=== PATIENT | male | born 1975 | race Caucasian/White ===

== ENCOUNTER 2018-03-15 17:54 | Inpatient (IN) | payer OTHER ==
[2018-03-15] MEDS ORDERED: SODIUM CHLORIDE 0.9% 1,000 ML IV ONE ×2 (19:09→19:38)
--- NOTE | 2018-03-15 19:22 | XR ---
EXAMINATION TYPE: XR chest 2V DATE OF EXAM: 03/15/2018 COMPARISON: NONE HISTORY: Pain TECHNIQUE: Frontal and lateral views of the chest are obtained. FINDINGS: Heart and mediastinum are normal. There is some patchy infiltrate in the periphery of the left midlung. This is probably in the superior segment left lower lobe. The other lung marie are jovita ar. Bony thorax is intact. IMPRESSION: Left lower lobe pneumonia.
[2018-03-15 19:34] LABS: Albumin 3.7 g/dL (3.5-5.0); Calcium 8.7 mg/dL (8.4-10.2); Potassium 4.4 mmol/L (3.5-5.1); Total Bilirubin 0.6 mg/dL (0.2-1.3); Total Protein 6.6 g/dL (6.3-8.2)
[2018-03-15] MEDS ORDERED: AZITHROMYCIN 500 MG in SODIUM CHLORIDE 0.9% 250 ML IVPB STA (19:44)
[2018-03-15] MEDS ORDERED: VANCOMYCIN IV PER PHARMACY 1 EACH MISC MISCELLANE PRN (19:44)
[2018-03-15] MEDS ORDERED: CEFEPIME 2 GM in SODIUM CHLORIDE 0.9% 50 ML IVPB STA (19:46)
[2018-03-15] MEDS ORDERED: VANCOMYCIN 1,500 MG in SODIUM CHLORIDE 0.9% 250 ML IVPB STA (19:48)
[2018-03-15 19:50] LABS: Basophils % (A) 0 %; Eosinophils % (A) 0 %; HCT 38.5 % (39.0-53.0); HGB 12.8 gm/dL (13.0-17.5); Lymphocytes # (A) 1.6 k/uL (1.0-4.8); Lymphocytes % (A) 13 %; MCHC 33.3 g/dL (31.0-37.0); MCV 93.2 fL (80.0-100.0); Mean Platelet Volume 6.7; Monocytes # (A) 0.6 k/uL (0-1.0); Monocytes % (A) 5 %; Neutrophils # (A) 10.4 k/uL (1.3-7.7); Neutrophils % (A) 81 %; Platelet Count 176 k/uL (150-450); RBC 4.13 m/uL (4.30-5.90); RDW 13.8 % (11.5-15.5); WBC 12.8 k/uL (3.8-10.6)
[2018-03-15] MEDS ORDERED: LEVOFLOXACIN 750MG-D5W PMX 750 MG in DEXTROSE/WATER 1 150ML.BAG IVPB SCH (20:00)
[2018-03-15] MEDS ORDERED: NALOXONE 0.4 MG/ML 1 ML VIAL IV PRN (20:18)
[2018-03-15] MEDS ORDERED: OSELTAMIVIR 75 MG CAP PO STA (20:18)
--- NOTE | 2018-03-15 20:23 | ED ---
ENT HPI - General Chief complaint: ENT Stated complaint: HIV Positive, fever & vomiting Time Seen by Provider: 03/15/18 18:27 Source: patient Mode of arrival: ambulatory Limitations: no limitations - History of Present Illness Initial comments: This a 42-year-old male with past history of HIV who denies any other past medical history, denies full blown AIDS, he states he is unsure of his HIV status being type I or type II. Patient states he normally has good CD4 and T lymphocyte counts. Patient is unsure of his last count stating it was in July 2017. Patient states he does follow HIV specialist Dr. Kc who is in [facility]. Patient states he is anti-retroviral therapy. Patient states he has been at [facility] for rehab. He states he has had cough sore throat and a fever prior to [facility] for the past 3 days. Patient also noted some mild pain at the time and was concerned he was developing thrush. Patient presented today for evaluation for thrush. Patient does admit to an episode of vomiting, denies diarrhea or abdominal pain. Denies headache neck stiffness photophobia, hemoptysis, chest pain, dyspnea, dyspnea on exertion. Remainder review of systems negative, Patient denies any recent numbness or tingling, dysuria or hematuria, constipation, headaches or visual changes, or any other complaints. - Related Data Home Medications Medication Instructions Recorded Confirmed Acetaminophen [Tylenol Arthritis] 650 mg PO Q4H 03/15/18 03/15/18 Atomoxetine HCl [Strattera] 40 mg PO BID 03/15/18 03/15/18 Bictegrav/Emtricit/Tenofov Ala 1 tab PO DAILY 03/15/18 03/15/18 [Biktarvy 50-200-25 mg Tablet] Chlorpheniramine Maleate 4 mg PO Q4H 03/15/18 03/15/18 [Chlor-Trimeton] Geritussin 10 ml PO Q4H PRN 03/15/18 03/15/18 Ibuprofen [Motrin] 600 mg PO Q6HR PRN 03/15/18 03/15/18 Nicotine 21Mg/24Hr Patch [Habitrol] 21 mg TRANSDERM DAILY 03/15/18 03/15/18 Sertraline [Zoloft] 50 mg PO DAILY 03/15/18 03/15/18 busPIRone HCl [Buspar] 10 mg PO TID 03/15/18 03/15/18 traZODone HCL 600 mg PO HS 03/15/18 03/15/18 Allergies Allergy/AdvReac Type Severity Reaction Status Date / Time Penicillins Allergy Anaphylaxis Verified 03/15/18 19:36 Review of Systems ROS Statement: Those systems with pertinent positive or pertinent negative responses have been documented in the HPI. ROS Other: All systems not noted in ROS Statement are negative. Past Medical History Past Medical History: Asthma, COPD Additional Past Medical History / Comment(s): HIV, Neuropathy History of Any Multi-Drug Resistant Organisms: None Reported Additional Past Surgical History / Comment(s): Left leg plates and screws Past Psychological History: Depression Smoking Status: Current every day smoker Past Alcohol Use History: None Reported Past Drug Use History: Methamphetamine General Exam - General Exam Comments Initial Comments: General: The patient is awake and alert, in no distress. Eye: Pupils are equal, round and reactive to light, extra-ocular movements are intact. No nystagmus. There is normal conjunctiva bilaterally. No signs of icterus. Ears, nose, mouth and throat: There are moist mucous membranes and no oral lesions. Tongue exam does not reveal thick white plaque, there is no plaque on the oropharynx. Oropharynx mildly erythematous. No tonsillar enlargement states her lesions. Tympanic membranes within normal limits bilaterally Neck: The neck is supple, there is no tenderness or JVD. Cardiovascular: There is a regular rate and rhythm. No murmur, rub or gallop is appreciated. Respiratory: Lungs are clear to auscultation, respirations are non-labored, breath sounds are equal. No wheezes, stridor, rales, or rhonchi. Dry cough on exam. Gastrointestinal: Soft, non-distended, non-tender abdomen without masses or organomegaly noted. There is no rebound or guarding present. No CVA tenderness. Bowel sounds are unremarkable. Musculoskeletal: Normal ROM, no tenderness. Strength 5/5. Sensation intact. Radial pulses equal bilaterally 2+. Neurological: A&O x 3. CN II-XII intact, There are no obvious motor or sensory deficits. Coordination appears grossly intact. Speech is normal. Skin: Skin is warm and dry and no rashes or lesions are noted. Psychiatric: Cooperative, appropriate mood & affect, normal judgment. Limitations: no limitations Course Vital Signs 03/15/18 18:13 Temperature 97.9 F Pulse Rate 96 Respiratory 18 Rate Blood Pressure 88/59 O2 Sat by Pulse 96 Oximetry Medical Decision Making - Medical Decision Making 42-year-old male with history of HIV no respiratory distress. Influenza positive. Patient also has a consolidation of left lower lobe pneumonia. Patient afebrile upon arrival. Pt give 2L total of bolus IV fluid. She started on 3 regimen antibiotic. At this time I do feel patient with history of HIV to be admitted with Tamiflu, IV antibiotics and close monitoring. Patient will be placed on continuous pulse ox. Patient is agreeable with admission. [place] disease on consult. Attending provider greet impression and plan. Patient transferred to the floor in stable condition. - Lab Data Result diagrams: 03/15/18 19:03 03/15/18 19:03 Lab Results 03/15/18 03/15/18 03/15/18 Range/Units 18:56 19:03 19:03 WBC 12.8 H (3.8-10.6) k/uL RBC 4.13 L (4.30-5.90) m/uL Hgb 12.8 L (13.0-17.5) gm/dL Hct 38.5 L (39.0-53.0) % MCV 93.2 (80.0-100.0) fL MCH 31.0 (25.0-35.0) pg MCHC 33.3 (31.0-37.0) g/dL RDW 13.8 (11.5-15.5) % Plt Count 176 (150-450) k/uL Neutrophils % 81 % Lymphocytes % 13 % Monocytes % 5 % Eosinophils % 0 % Basophils % 0 % Neutrophils # 10.4 H (1.3-7.7) k/uL Lymphocytes # 1.6 (1.0-4.8) k/uL Monocytes # 0.6 (0-1.0) k/uL Eosinophils # 0.0 (0-0.7) k/uL Basophils # 0.0 (0-0.2) k/uL Sodium 138 (137-145) mmol/L Potassium 4.4 (3.5-5.1) mmol/L Chloride 103 (98-107) mmol/L Carbon Dioxide 25 (22-30) mmol/L Anion Gap 10 mmol/L BUN 15 (9-20) mg/dL Creatinine 1.20 (0.66-1.25) mg/dL Est GFR (CKD-EPI)AfAm 87 (>60 ml/min/1.73 sqM) Est GFR (CKD-EPI)NonAf 75 (>60 ml/min/1.73 sqM) Glucose 83 (74-99) mg/dL Plasma Lactic Acid Ilia (0.7-2.0) mmol/L Calcium 8.7 (8.4-10.2) mg/dL Total Bilirubin 0.6 (0.2-1.3) mg/dL AST 24 (17-59) U/L ALT 27 (21-72) U/L Alkaline Phosphatase 35 L (38-126) U/L Total Protein 6.6 (6.3-8.2) g/dL Albumin 3.7 (3.5-5.0) g/dL Influenza Type A RNA Detected H (Not Detectd) Influenza Type B (PCR) Not Detected (Not Detectd) 03/15/18 Range/Units 19:03 WBC (3.8-10.6) k/uL RBC (4.30-5.90) m/uL Hgb (13.0-17.5) gm/dL Hct (39.0-53.0) % MCV (80.0-100.0) fL MCH (25.0-35.0) pg MCHC (31.0-37.0) g/dL RDW (11.5-15.5) % Plt Count (150-450) k/uL Neutrophils % % Lymphocytes % % Monocytes % % Eosinophils % % Basophils % % Neutrophils # (1.3-7.7) k/uL Lymphocytes # (1.0-4.8) k/uL Monocytes # (0-1.0) k/uL Eosinophils # (0-0.7) k/uL Basophils # (0-0.2) k/uL Sodium (137-145) mmol/L Potassium (3.5-5.1) mmol/L Chloride (98-107) mmol/L Carbon Dioxide (22-30) mmol/L Anion Gap mmol/L BUN (9-20) mg/dL Creatinine (0.66-1.25) mg/dL Est GFR (CKD-EPI)AfAm (>60 ml/min/1.73 sqM) Est GFR (CKD-EPI)NonAf (>60 ml/min/1.73 sqM) Glucose (74-99) mg/dL Plasma Lactic Acid Ilia 1.2 (0.7-2.0) mmol/L Calcium (8.4-10.2) mg/dL Total Bilirubin (0.2-1.3) mg/dL AST (17-59) U/L ALT (21-72) U/L Alkaline Phosphatase (38-126) U/L Total Protein (6.3-8.2) g/dL Albumin (3.5-5.0) g/dL Influenza Type A RNA (Not Detectd) Influenza Type B (PCR) (Not Detectd) Disposition Clinical Impression: Influenza A, History of HIV infection, Pneumonia Disposition: ADMITTED IP TO THIS HOSP Condition: Stable Is patient prescribed a controlled substance at d/c from ED?: No Referrals: Nonstaff,Physician [Primary Care Provider] - 1-2 days Time of Disposition: 20:23 Decision to Admit Reason: Admit from EC Decision Date: 03/15/18 Decision Time: 20:23
[2018-03-15] MEDS ORDERED: IBUPROFEN 800 MG TAB PO PRN (22:25)
[2018-03-15] MEDS ORDERED: ACETAMINOPHEN TAB 325 MG TAB PO PRN (22:27)
--- NOTE | 2018-03-15 22:55 | P.HPIM ---
History of Present Illness H&P Date: 03/15/18 Chief Complaint: coughing , diffuse body aches 42-year-old male with history of HIV and polysubstance abuse [facility] Patient presented to the hospital with 3 day history of coughing and diffuse body aches. Today he was having fevers at the rehab center for which the nurse recommended that he goes to the hospital for evaluation patient reports many sick people around him all coughing. He reports nonproductive cough associated with sore throat and diffuse body aches. He also reports some runny nose and itchy eyes and feeling sick. He denies any wheezing or shortness of breath. He reports fevers today as high as 102 Fahrenheit. Reports poor appetite and malaise. Otherwise he denies any abdominal pain diarrhea or constipation denies any GI bleeding denies any urinary symptoms. Patient reports that he has history of HIV last follow-up was in July 2017 when he reports he had good CD4 number but he does not recall the value. He's been on antiretroviral therapy which was adjusted at that time. He is not on prophylactic antibiotics. Patient also reports that he lost his parents in July and became homeless. He currently stays at [facility]. In the ED he was found to have influenza A virus positive, chest x-ray suggested some left low lobe infiltrate. Patient was started on Tamiflu and levofloxacin for A coronary pneumonia Review of Systems Pertinent positives as noted in HPI. All other systems were reviewed and are negative Past Medical History Past Medical History: Asthma, COPD Additional Past Medical History / Comment(s): HIV, Neuropathy History of Any Multi-Drug Resistant Organisms: None Reported Additional Past Surgical History / Comment(s): Left leg plates and screws Past Psychological History: Depression Smoking Status: Current every day smoker Past Alcohol Use History: None Reported Past Drug Use History: Methamphetamine - Past Family History Mother Family Medical History: Myocardial Infarction ([place]) Father Family Medical History: Myocardial Infarction ([place]) Medications and Allergies Home Medications Medication Instructions Recorded Confirmed Type Acetaminophen [Tylenol Arthritis] 650 mg PO Q4H 03/15/18 03/15/18 History Atomoxetine HCl [Strattera] 40 mg PO BID 03/15/18 03/15/18 History Bictegrav/Emtricit/Tenofov Ala 1 tab PO DAILY 03/15/18 03/15/18 History [Biktarvy 50-200-25 mg Tablet] Chlorpheniramine Maleate 4 mg PO Q4H 03/15/18 03/15/18 History [Chlor-Trimeton] Geritussin 10 ml PO Q4H PRN 03/15/18 03/15/18 History Ibuprofen [Motrin] 600 mg PO Q6HR PRN 03/15/18 03/15/18 History Nicotine 21Mg/24Hr Patch [Habitrol] 21 mg TRANSDERM DAILY 03/15/18 03/15/18 History Sertraline [Zoloft] 50 mg PO DAILY 03/15/18 03/15/18 History busPIRone HCl [Buspar] 10 mg PO TID 03/15/18 03/15/18 History traZODone HCL 600 mg PO HS 03/15/18 03/15/18 History Allergies Allergy/AdvReac Type Severity Reaction Status Date / Time Penicillins Allergy Anaphylaxis Verified 03/15/18 19:36 Physical Exam Vitals: Vital Signs Temp Pulse Pulse Resp BP BP Pulse Ox 03/15/18 21:23 97.7 F 88 16 113/72 98 03/15/18 20:50 98 F 82 18 106/68 100 03/15/18 18:13 97.9 F 96 18 88/59 96 Intake and Output 03/15/18 03/15/18 03/15/18 06:59 14:59 22:59 Other: Weight 62.596 kg Constitutional: No acute distress, conversant, pleasant Eyes: Anicteric sclerae, moist conjunctiva, no lid-lag Pupils equal round reactive to light ENMT: NC/AT Oropharynx clear, no erythema, no exudates, no oral thrush Neck: Supple, FROM, no masses, or JVD No carotid bruits No thyromegaly Lungs: Good breath sounds bilaterally no wheezes rhonchi or rales Clear to percussion Normal respiratory effort, no accessory muscle use Cardiovascular: Heart regular in rate and rhythm, No murmurs, gallops, or rubs No peripheral edema Abdominal: Soft Nontender, no guarding, rebound or rigidity Abdomen moving with respiration Normoactive bowel sounds No hepatomegaly, No splenomegaly No palpable mass No abdominal wall hernia noted Skin: Normal temperature, tone, texture, turgor No induration No subcutaneous nodules No rash, lesions No ulcers Extremities: No digital cyanosis No clubbing Pedal pulses intact and symmetrical Radial pulses intact and symmetrical No calf tenderness Psychiatric: Alert and oriented to person, place and time Appropriate affect fair judgment Neuro Muscles Strength 5/5 in all 4 extremities Sensation to light touch grossly present throughout Cranial nerves II-XII grossly intact No focal sensory deficits Lymphatics: no palpable cervical or supraclavicular , or inguinal lymph nodes Results CBC & Chem 7: 03/15/18 19:03 03/15/18 19:03 Labs: Abnormal Lab Results - Last 24 Hours (Table) 03/15/18 03/15/18 03/15/18 Range/Units 18:56 19:03 19:03 WBC 12.8 H (3.8-10.6) k/uL RBC 4.13 L (4.30-5.90) m/uL Hgb 12.8 L (13.0-17.5) gm/dL Hct 38.5 L (39.0-53.0) % Neutrophils # 10.4 H (1.3-7.7) k/uL Alkaline Phosphatase 35 L (38-126) U/L Influenza Type A RNA Detected H (Not Detectd) Assessment and Plan Assessment: 42-year-old male with history of HIV admitted as an inpatient with anticipated length of stay more than 48 hours due to acute influenza A infection with possible underlying community-acquired pneumonia. patient currently is homeless, he came from [facility] due to meth abuse. Patient reports that his last follow-up with HIV clinic was 6 months ago at that time he had good CD4 count per his report Plan: Acute influenza A virus infection Community-acquired pneumonia Blood cultures check Started on levofloxacin, Tamiflu IV fluid hydration Symptomatic control with ibuprofen, Lozenges, cough syrup HIV Currently on antiretroviral therapy Not on any prophylaxis medications Most recent CD4 was 6 months ago patient doesn't recall the exact number Check CD4 count and t lymphocytes History of asthma/COPD DuoNeb's when necessary Tobacco smoking Nicotine replacement therapy offered Patient counseled to quit smoking DVT prophylaxis heparin subcu 3 times a day Surrogate decision-maker: Patient couldn't name any 1 CODE STATUS:*Full code Discussed with: Patient, ER, *RN Anticipated discharge: 48-[address]: Patient will require placement custodial or rehab, patient currently homeless A total of 55 minutes was spent on the care of this complex patient more than 50 % of the time was spent in counseling and care coordination.
[2018-03-15] MEDS: busPIRone HCl 10 MG TAB PO SCH (23:51)
[2018-03-15] MEDS: HEPARIN SODIUM,PORCINE 5,000 UNIT/ML 1 ML VIAL SQ SCH (23:51)
[2018-03-15] MEDS: guaiFENesin-DM 100-10MG/5ML 10 ML CUP PO PRN (23:51)
[2018-03-15] MEDS: NICOTINE 21MG/24HR PATCH TRANSDERM SCH (23:52)
[2018-03-15] MEDS: traZODone HCL 100 MG TAB PO SCH (23:52)
[2018-03-15] MEDS: SODIUM CHLORIDE 0.9% 1,000 ML IV SCH (23:52)
[2018-03-16] MEDS ORDERED: AZTREONAM 2 GM in SODIUM CHLORIDE 0.9% 100 ML IVPB SCH ×2
[2018-03-16] MEDS: BENZOCAINE/MENTHOL LOZENG 1 EACH LOZENGE MUCOUS MEM PRN ×2 (02:35→22:29)
[2018-03-16 07:56] LABS: Anion Gap 4 mmol/L; Blood Urea Nitrogen 10 mg/dL (9-20); Calcium 8.4 mg/dL (8.4-10.2); Carbon Dioxide 25 mmol/L (22-30); Chloride 113 mmol/L (98-107); Glucose 93 mg/dL (74-99); Potassium 4.1 mmol/L (3.5-5.1); Sodium 142 mmol/L (137-145)
[2018-03-16] MEDS ORDERED: VANCOMYCIN 1,250 MG in SODIUM CHLORIDE 0.9% 250 ML IVPB SCH (08:00)
--- NOTE | 2018-03-16 08:45 | P.CONS ---
History of Present Illness - Reason for Consult Consult date: 03/16/18 - Chief Complaint Fever - History of Present Illness 42-year-old male with a long-standing history of HIV infection is being housed at the [facility] for his current polysubstance abuse. He apparently is getting to the end of his stay at the facility. He relates that many of the residents are ill with respiratory infection with cough and fevers. The patient relates that within a couple of days of [facility]mad[facility] emergency center he was not feeling well. He was having some low-grade fevers cough and chills. On the day was transferred to the emergency center he was feeling quite poorly with fever, cough some minimal sputum production and chills. He relates that he also was having a bit of difficulty eating and was losing some weight. This worries him because when he first was diagnosed with HIV he had bowel infection and had profuse diarrhea and lost quite a bit of weight back then. He relates was routinely on Biktarvy and doing well with this therapy. Review of Systems Feels slightly better. Fever and chills are improving. Still has cough and mild shortness of breath. HEENT:Denies headache or acute visual change. Denies sinus or mouth discomforts. Denies neck stiffness or pain. No difficulty swallowing but mouth is uncomfortable. Lungs : His some minimal wheezing does have cough some sputum production but no significant discomfort in his chest Cardiovascular: Denies significant shortness of breath, chest pain, chest wall pain, orthopnea, dyspnea on exertion, syncope Gastrointestinal:Denies nausea, vomiting, diarrhea, constipation, hematemesis, melena, hematochezia. No no significant change of bowel habit noticed. Musculoskeletal: denies significant myalgias or arthralgias. No new joint swelling. Denies new back pain. Skin: Denies new rash or lesions. No new ulcers or wounds are related.. Neuro: Denies headache or visual change. Denies any new onset weakness or difficulty with ambulation. Denies falls or seizures. Psychiatric:Denies anxiety or depression. Endocrine with the illness has become fatigued ,weight has been somewhat stable while he has been at [facility] Past Medical History Past Medical History: Asthma, COPD Additional Past Medical History / Comment(s): HIV, Neuropathy History of Any Multi-Drug Resistant Organisms: None Reported Additional Past Surgical History / Comment(s): Left leg plates and screws Past Psychological History: Depression Additional Psychological History / Comment(s): Chronic tobacco use. Chronic marijuana use. Polysubstance abuse at the time of his admission to [facility]. Identifies as antuenz. Somewhat recently broke up with Partner of 11 years. His parents this past summer within 4 weeks of each other. He relates that these 3 events resulted in him being homeless and worsened his polysubstance abuse. No experience. 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 [place] Smoking Status: Current every day smoker Past Alcohol Use History: None Reported Past Drug Use History: Methamphetamine - Past Family History Mother Family Medical History: Myocardial Infarction ([place]) Father Family Medical History: Myocardial Infarction ([place]) Medications and Allergies Home Medications and Allergies Comment(s): Current Medications Acetaminophen (Tylenol Tab) 650 mg PO Q4H PRN PRN Reason: Fever Albuterol/Ipratropium (Duoneb 0.5 Mg-3 Mg/3 Ml Soln) 3 ml INHALATION RT-QID PRN PRN Reason: Shortness Of Breath Or Wheezing Benzocaine/Menthol (Cepacol Lozenge) 1 each MUCOUS MEM Q4HR PRN PRN Reason: Sore Throat Last Admin: 03/16/18 02:35 Dose: 1 each Buspirone HCl (Buspar) 10 mg PO TID [facility] Last Admin: 03/15/18 23:51 Dose: 10 mg Guaifenesin/Dextromethorphan (Robitussin Dm) 10 ml PO Q6H PRN PRN Reason: Cough Last Admin: 03/15/18 23:51 Dose: 10 ml Heparin Sodium (Porcine) (Heparin) 5,000 unit SQ Q8HR [facility] Last Admin: 03/15/18 23:51 Dose: 5,000 unit Levofloxacin 750 mg/ IV (Solution) 150 mls @ 100 mls/hr IVPB Q24H [facility] Last Admin: 03/15/18 23:51 Dose: 100 mls/hr Sodium Chloride (Saline 0.9%) 1,000 mls @ 100 mls/hr IV .Q10H [facility] Last Admin: 03/15/18 23:52 Dose: 100 mls/hr Ibuprofen (Motrin) 800 mg PO TID PRN PRN Reason: Pain Naloxone HCl (Narcan) 0.2 mg IV Q2M PRN PRN Reason: Opioid Reversal Nicotine (Habitrol 21mg/24hr Patch) 1 patch TRANSDERM DAILY [facility] Last Admin: 03/15/18 23:52 Dose: 1 patch Non-Formulary Medication (Atomoxetine Hcl [Strattera]) 40 mg PO BID [facility] Non-Formulary Medication (Bictegrav/Emtricit/Tenofov Ala [Biktarvy 50-200-25 Mg Tablet]) 1 tab PO DAILY [facility] Oseltamivir Phosphate (Tamiflu) 75 mg PO Q12HR [facility] Stop: 03/20/18 21:01 Sertraline HCl (Zoloft) 50 mg PO DAILY [facility] Trazodone HCl (Desyrel) 300 mg PO [facility] Last Admin: 03/15/18 23:52 Dose: 300 mg Home Medications Medication Instructions Recorded Confirmed Type Acetaminophen [Tylenol Arthritis] 650 mg PO Q4H 03/15/18 03/15/18 History Atomoxetine HCl [Strattera] 40 mg PO BID 03/15/18 03/15/18 History Bictegrav/Emtricit/Tenofov Ala 1 tab PO DAILY 03/15/18 03/15/18 History [Biktarvy 50-200-25 mg Tablet] Chlorpheniramine Maleate 4 mg PO Q4H 03/15/18 03/15/18 History [Chlor-Trimeton] Geritussin 10 ml PO Q4H PRN 03/15/18 03/15/18 History Ibuprofen [Motrin] 600 mg PO Q6HR PRN 03/15/18 03/15/18 History Nicotine 21Mg/24Hr Patch [Habitrol] 21 mg TRANSDERM DAILY 03/15/18 03/15/18 History Sertraline [Zoloft] 50 mg PO DAILY 03/15/18 03/15/18 History busPIRone HCl [Buspar] 10 mg PO TID 03/15/18 03/15/18 History traZODone HCL 600 mg PO HS 03/15/18 03/15/18 History Allergies Allergy/AdvReac Type Severity Reaction Status Date / Time Penicillins Allergy Anaphylaxis Verified 03/15/18 19:36 Physical Exam Vitals: Vital Signs Temp Pulse Pulse Resp BP BP Pulse Ox 03/16/18 00:36 98.2 F 91 15 124/60 97 03/15/18 22:00 91 15 03/15/18 21:23 97.7 F 88 16 113/72 98 03/15/18 20:50 98 F 82 18 106/68 100 03/15/18 18:13 97.9 F 96 18 88/59 96 Intake and Output 03/15/18 03/16/18 03/16/18 22:59 06:59 14:59 Intake Total 2500 1400 Balance 2500 1400 Intake: Intake, IV Titration 2200 1050 Amount Levofloxacin 750Mg-D5w 150 Pmx 750 mg In Dextrose/ Water 1 150ml.bag @ 100 mls/hr IVPB Q24H [facility] Rx#: [id number] Sodium Chloride 0.9% 1, 900 000 ml @ 100 mls/hr IV . Q10H [facility] Rx#:[id number] Sodium Chloride 0.9% 1, 1000 000 ml @ 999 mls/hr IV . Q1H1M [facility] Rx#:[id number] Sodium Chloride 0.9% 1, 1000 000 ml @ 999 mls/hr IV . Q1H1M [facility] Rx#:[id number] Vancomycin 1,250 mg In 200 Sodium Chloride 0.9% 250 ml @ 125 mls/hr IVPB Q12H [facility] Rx#:[id number] Oral 300 350 Other: Voiding Method Toilet # Voids 3 2 Weight 62.596 kg 6-year-old male of thin build in no distress HEENT: Anicteric conjunctiva are pink and moist nasal mucosa grossly intact without significant lesions, there is mild thrush Neck: The neck is supple without significant lymphadenopathy or thyromegaly. Lungs: Good bilateral air entry with evidence of some expiratory wheeze. There are bronchial sounds at the left baseand dullness but no egophony is noted Heart: Regular rate and rhythm with an audible S1-S2, no S3 no S4. There is no significant murmur click or rub, PMI was nondisplaced. Abdomen: Positive bowel sounds soft and nontender without palpable masses or organomegaly. There was no guarding or rebound. Extremities: The upper extremities have excellent pulses they are symmetric, no significant petechiae or telangiectasia. No splinter hemorrhages were noted. There is evidence of a healing paronychia of the left thumb no expressible purulence. The lower extremities are free from significant edema. The peripheral pulses were 2+ and symmetric. Neuro: Awake alert oriented to person place and time. There are no acute new gross focal sensory motor deficits. Results CBC & Chem 7: 03/15/18 19:03 03/16/18 06:39 Labs: Abnormal Lab Results - Last 24 Hours (Table) 03/15/18 03/15/18 03/15/18 Range/Units 18:56 19:03 19:03 WBC 12.8 H (3.8-10.6) k/uL RBC 4.13 L (4.30-5.90) m/uL Hgb 12.8 L (13.0-17.5) gm/dL Hct 38.5 L (39.0-53.0) % Neutrophils # 10.4 H (1.3-7.7) k/uL Chloride (98-107) mmol/L Alkaline Phosphatase 35 L (38-126) U/L Influenza Type A RNA Detected H (Not Detectd) 03/16/18 Range/Units 06:39 WBC (3.8-10.6) k/uL RBC (4.30-5.90) m/uL Hgb (13.0-17.5) gm/dL Hct (39.0-53.0) % Neutrophils # (1.3-7.7) k/uL Chloride 113 H (98-107) mmol/L Alkaline Phosphatase (38-126) U/L Influenza Type A RNA (Not Detectd) Laboratory Results WBC 12.8 k/uL (3.8-10.6) H 03/15/18 19:03 RBC 4.13 m/uL (4.30-5.90) L 03/15/18 19:03 Hgb 12.8 gm/dL (13.0-17.5) L 03/15/18 19:03 Hct 38.5 % (39.0-53.0) L 03/15/18 19: MCV 93.2 fL (80.0-100.0) 03/15/18 19:03 MCH 31.0 pg (25.0-35.0) 03/15/18 19: MCHC 33.3 g/dL (31.0-37.0) 03/15/18 19: RDW 13.8 % (11.5-15.5) 03/15/18 19:03 Plt Count 176 k/uL (150-450) 03/15/18 19:03 Neutrophils % 81 % 03/15/18 19:03 Lymphocytes % 13 % 03/15/18 19:03 Monocytes % 5 % 03/15/18 19:03 Eosinophils % 0 % 03/15/18 19:03 Basophils % 0 % 03/15/18 19:03 Neutrophils # 10.4 k/uL (1.3-7.7) H 03/15/18 19:03 Lymphocytes # 1.6 k/uL (1.0-4.8) 03/15/18 19:03 Monocytes # 0.6 k/uL (0-1.0) 03/15/18 19:03 Eosinophils # 0.0 k/uL (0-0.7) 03/15/18 19:03 Basophils # 0.0 k/uL (0-0.2) 03/15/18 19:03 Sodium 142 mmol/L (137-145) 03/16/18 06:39 Potassium 4.1 mmol/L (3.5-5.1) 03/16/18 06:39 Chloride 113 mmol/L (98-107) H 03/16/18 06:39 Carbon Dioxide 25 mmol/L (22-30) 03/16/18 06:39 Anion Gap 4 mmol/L 03/16/18 06:39 BUN 10 mg/dL (9-20) 03/16/18 06:39 Creatinine 0.89 mg/dL (0.66-1.25) 03/16/18 06:39 Est GFR (CKD-EPI)AfAm >90 (>60 ml/min/1.73 sqM) 03/16/18 06:39 Est GFR (CKD-EPI)NonAf >90 (>60 ml/min/1.73 sqM) 03/16/18 06:39 Glucose 93 mg/dL (74-99) 03/16/18 06:39 Plasma Lactic Acid Ilia 1.2 mmol/L (0.7-2.0) 03/15/18 19:03 Calcium 8.4 mg/dL (8.4-10.2) 03/16/18 06:39 Total Bilirubin 0.6 mg/dL (0.2-1.3) 03/15/18 19:03 AST 24 U/L (17-59) 03/15/18 19:03 ALT 27 U/L (21-72) 03/15/18 19:03 Alkaline Phosphatase 35 U/L (38-126) L 03/15/18 19:03 Total Protein 6.6 g/dL (6.3-8.2) 03/15/18 19:03 Albumin 3.7 g/dL (3.5-5.0) 03/15/18 19:03 Influenza Type A RNA Detected (Not Detectd) H 03/15/18 18:56 Influenza Type B (PCR) Not Detected (Not Detectd) 03/15/18 18:56 Assessment and Plan (1) Influenza A Narrative/Plan: 42-year-old male with a approximate 10 year history of HIV infection relates that he has been well controlled under the care of Dr. Kc in the [place] area. Biktarvy is his current antiretroviral therapy and has been tolerating this well he relates his CD4 count has been adequate considerably over 200. He is in no prophylaxis of any type at this point in time. Since he' s become ill with influenza he's had fever cough and sensory production. Chest x-ray is reviewed and shows evidence of the left lower lobe infiltrate also. Treatment with standard course of Tamiflu Levofloxacin being utilized for treatment of the pneumonia, he does not appear to be a classic viral pneumonia and constantly antibiotic therapy is appropriate in addition to the antiviral therapy given his immunocompromised status, would plan 7 days given his immunocompromised status. We have asked the geriatric social work professor to contact [facility] so that his [facility] is available while he is here at Hospital and then after his discharge. If the patient does set up residence in [facility] he could follow in the office. Current Visit: Yes Status: Acute Code(s): J10.1 - FLU DUE TO OTH IDENT INFLUENZA VIRUS W OTH RESP MANIFEST SNOMED Code(s): 319213253 (2) Human immunodeficiency virus (HIV) disease Current Visit: Yes Status: Acute Code(s): B20 - HUMAN IMMUNODEFICIENCY VIRUS [HIV] DISEASE SNOMED Code(s): 78555429
[2018-03-16] MEDS: NICOTINE 21MG/24HR PATCH TRANSDERM SCH (09:12)
[2018-03-16] MEDS: HEPARIN SODIUM,PORCINE 5,000 UNIT/ML 1 ML VIAL SQ SCH ×2 (09:12→17:53)
[2018-03-16] MEDS: SERTRALINE 50 MG TAB PO SCH (09:12)
[2018-03-16] MEDS: OSELTAMIVIR 75 MG CAP PO SCH ×2 (09:12→22:30)
[2018-03-16] MEDS: busPIRone HCl 10 MG TAB PO SCH ×3 (09:31→22:30)
[2018-03-16] MEDS: SODIUM CHLORIDE 0.9% 1,000 ML IV SCH ×2 (09:31→22:33)
[2018-03-16] MEDS: IPRATROPIUM-ALBUTEROL 3 ML NEB INHALATION PRN (11:56)
--- NOTE | 2018-03-16 12:44 | P.PN ---
Subjective Progress Note Date: 03/16/18 Principal diagnosis: influenza, pneumonia Patient was seen and examined. No acute events overnight. Patient complains of chest pain, only when he coughs. Pain is 7 out of 10 in severity. His pain prevents him from taking deep inhalations. Patient reports myalgias as well. He denies any changes in urination or bowel habits. No fever or chills. Objective - Vital Signs Vital signs: Vital Signs Temp 98.3 F 03/16/18 09:06 Pulse 80 03/16/18 12:04 Resp 16 03/16/18 09:06 BP 94/57 03/16/18 09:08 Pulse Ox 92 L 03/16/18 09:08 Intake & Output 03/15/18 03/16/18 03/16/18 18:59 06:59 18:59 Intake Total 3900 Balance 3900 Weight 62.596 kg Intake: Intake, IV Titration 3250 Amount Levofloxacin 750Mg-D5w 150 Pmx 750 mg In Dextrose/ Water 1 150ml.bag @ 100 mls/hr IVPB Q24H [facility] Rx#: [id number] Sodium Chloride 0.9% 1, 900 000 ml @ 100 mls/hr IV . Q10H [facility] Rx#:[id number] Sodium Chloride 0.9% 1, 1000 000 ml @ 999 mls/hr IV . Q1H1M [facility] Rx#:[id number] Sodium Chloride 0.9% 1, 1000 000 ml @ 999 mls/hr IV . Q1H1M [facility] Rx#:[id number] Vancomycin 1,250 mg In 200 Sodium Chloride 0.9% 250 ml @ 125 mls/hr IVPB Q12H [facility] Rx#:[id number] Oral 650 Other: Voiding Method Toilet Toilet # Voids 2 - Exam General: [non toxic], [no distress], [appears at stated age] Derm: [warm], [dry] Head: [atraumatic], [normocephalic], [symmetric] Eyes: [EOMI], [no lid lag], [anicteric sclera] Mouth: [no lip lesion], [mucus membranes moist] Cardiovascular: [S1S2 reg], [tachycardia], [positive posterior tibial pulse bilateral], Lungs: [clear to auscultation bilaterally with poor inspiratory effort], [no rhonchi, no rales] , [no accessory muscle use] Abdominal: [soft], [ nontender to palpation], [no guarding], [no appreciable organomegaly] Ext: [no gross muscle atrophy], [no edema], [no contractures] Neuro: [no focal neuro deficits] Psych: [Alert], [oriented], [appropriate affect] - Labs CBC & Chem 7: 03/15/18 19:03 03/16/18 06:39 Labs: Abnormal Lab Results - Last 24 Hours (Table) 03/15/18 03/15/18 03/15/18 Range/Units 18:56 19:03 19:03 WBC 12.8 H (3.8-10.6) k/uL RBC 4.13 L (4.30-5.90) m/uL Hgb 12.8 L (13.0-17.5) gm/dL Hct 38.5 L (39.0-53.0) % Neutrophils # 10.4 H (1.3-7.7) k/uL Chloride (98-107) mmol/L Alkaline Phosphatase 35 L (38-126) U/L Influenza Type A RNA Detected H (Not Detectd) 03/16/18 Range/Units 06:39 WBC (3.8-10.6) k/uL RBC (4.30-5.90) m/uL Hgb (13.0-17.5) gm/dL Hct (39.0-53.0) % Neutrophils # (1.3-7.7) k/uL Chloride 113 H (98-107) mmol/L Alkaline Phosphatase (38-126) U/L Influenza Type A RNA (Not Detectd) Assessment and Plan Assessment: Assessment and Plan 1. Influenza infection 2. Pneumonia 3. HIV 4. Asthma/COPD 5. Smoker 1. Influenza swab positive. Tylenol as needed for fever. Robitussin-DM for cough. Cefaclor lozenges for sore throat. Pain management with ibuprofen or Tylenol, will add Torodol IV as needed for breakthrough. Continue Tamiflu 75 mg by mouth twice a day. We'll follow ID recommendations. 2. As seen on chest x-ray.started on levofloxacin IV for community-acquired pneumonia. Tylenol as needed for fever. Robitussin-DM for cough. Oxygen per nasal cannula to maintain an oxygen saturation greater than 92%. Will follow blood cultures. 3. Resume home medications. We'll follow ID recommendations. 4. DuoNeb as needed4 times a day as needed for shortness of breath or wheezing. 5. Nicotine patch. Patient being treated for influenza infection with superimposed pneumonia. He is pending clinical improvement.
[2018-03-16] MEDS: KETOROLAC 30 MG/ML 1 ML VIAL IVP SCH ×2 (15:14→18:00)
[2018-03-16] MEDS: STRATTERA 40 MG PO SCH ×2 (17:50→22:45)
[2018-03-16] MEDS: MORPHINE SULFATE 2 MG/ML SYRINGE IVP PRN (17:54)
[2018-03-16] MEDS: [UNRECOGNIZED DRUG - OTHER] PO SCH (19:23)
[2018-03-16] MEDS: guaiFENesin-DM 100-10MG/5ML 10 ML CUP PO PRN (22:29)
[2018-03-16] MEDS: LEVOFLOXACIN 750 MG TAB PO SCH (22:30)
[2018-03-16] MEDS: traZODone HCL 100 MG TAB PO SCH (22:30)
[2018-03-17] MEDS: KETOROLAC 30 MG/ML 1 ML VIAL IVP SCH ×5 (00:01→23:00)
[2018-03-17] MEDS: HEPARIN SODIUM,PORCINE 5,000 UNIT/ML 1 ML VIAL SQ SCH ×4 (00:01→23:00)
[2018-03-17] MEDS: MELATONIN 3 MG TABLET PO SCH ×2 (00:01→20:47)
[2018-03-17] MEDS: SODIUM CHLORIDE 0.9% 1,000 ML IV SCH ×2 (04:47→17:57)
[2018-03-17] MEDS: MORPHINE SULFATE 2 MG/ML SYRINGE IVP PRN ×4 (05:13→20:46)
[2018-03-17 08:24] LABS: Anion Gap 3 mmol/L; Blood Urea Nitrogen 10 mg/dL (9-20); Calcium 8.5 mg/dL (8.4-10.2); Carbon Dioxide 25 mmol/L (22-30); Chloride 115 mmol/L (98-107); Glucose 99 mg/dL (74-99); Potassium 4.5 mmol/L (3.5-5.1); Sodium 143 mmol/L (137-145)
[2018-03-17] MEDS: [UNRECOGNIZED DRUG - OTHER] PO SCH (10:13)
[2018-03-17] MEDS: OSELTAMIVIR 75 MG CAP PO SCH ×2 (10:14→20:47)
[2018-03-17] MEDS: BENZOCAINE/MENTHOL LOZENG 1 EACH LOZENGE MUCOUS MEM PRN (10:15)
[2018-03-17] MEDS: busPIRone HCl 10 MG TAB PO SCH ×3 (10:15→20:47)
[2018-03-17] MEDS: SERTRALINE 50 MG TAB PO SCH (10:15)
[2018-03-17] MEDS: NICOTINE 21MG/24HR PATCH TRANSDERM SCH (10:15)
[2018-03-17] MEDS: STRATTERA 40 MG PO SCH ×2 (10:30→20:48)
[2018-03-17 10:58] LABS: T4/T8 Ratio (CD4:CD8) 0.3 (1.0-3.7)
--- NOTE | 2018-03-17 12:59 | P.PN ---
Subjective Progress Note Date: 03/17/18 Patient reporting sleep overnight after having melatonin last night. The patient previously from [place] reportedly completed the program there and is waiting referral for longterm. Apparently has no place to go. Patient afebrile overnight Objective - Vital Signs Vital signs: Vital Signs Temp 97.4 F L 03/17/18 09:32 Pulse 70 03/17/18 09:32 Resp 16 03/17/18 09:32 BP 104/68 03/17/18 09:32 Pulse Ox 98 03/17/18 09:32 Intake & Output 03/16/18 03/17/18 03/17/18 18:59 06:59 18:59 Intake Total 800 700 720 Balance 800 700 720 Intake: IV 800 Sodium Chloride 0.9% 1, 800 000 ml @ 100 mls/hr IV . Q10H [facility] Rx#:[id number] Intake, IV Titration 700 Amount Sodium Chloride 0.9% 1, 700 000 ml @ 100 mls/hr IV . Q10H [facility] Rx#:[id number] Oral 720 Other: Voiding Method Toilet - Exam Constitutional: No acute distress, conversant, pleasant Eyes: Anicteric sclerae, moist conjunctiva, no lid-lag, PERRLA ENMT: NC/AT,Oropharynx clear, no erythema, exudates Neck:Supple, FROM, no masses, or JVD, No carotid bruits; No thyromegaly Lungs: Clear to auscultation, Clear to percussion, Normal respiratory effort, no accessory muscle use Cardiovascular: Heart regular in rate and rhythm, No murmurs, gallops, or rubs no peripheral edema Abdominal: Soft Nontender, nom distended, no guarding, no rebound or rigidity, Normoactive bowel sounds No hepatomegaly, No splenomegaly, No palpable mass No abdominal wall hernia noted Skin: Normal temperature, tone, texture, turgor, No induration No subcutaneous nodules, No rash, lesions, No ulcers Extremities:No digital cyanosis No clubbing, Pedal pulses intact and symmetrical Radial pulses intact and symmetrical Normal gait and station, No calf tenderness Psychiatric: Alert and oriented to person, place and time, Appropriate affect Intact judgement Neuro: Muscles Strength 5/5 in all 4 extremities, Sensation to light touch grossly present throughout, Cranial nerves II-XII grossly intact. No focal sensory deficits - Labs CBC & Chem 7: 03/15/18 19:03 03/17/18 06:41 Labs: Abnormal Lab Results - Last 24 Hours (Table) 03/16/18 03/17/18 Range/Units 06:39 06:41 Chloride 115 H (98-107) mmol/L T-Suppressor Cells 932 H (190-832) cell/ul % CD4 [place] 17 L (35-66) % Absolute CD4 [place] 247 L (443-1471) cell/ul CD4/CD8 Ratio 0.3 L (1.0-3.7) % CD8 Suppressor 64 H (9-37) % Microbiology - Last 24 Hours (Table) 03/15/18 19:03 Blood Culture - Preliminary Blood No Growth after 24 hours Assessment and Plan (1) Influenza A Narrative/Plan: * Continue with Tamiflu Current Visit: Yes Status: Acute Code(s): J10.1 - FLU DUE TO OTH IDENT INFLUENZA VIRUS W OTH RESP MANIFEST SNOMED Code(s): 836381276 (2) Pneumonia Narrative/Plan: * Continue with Levaquin 750 mg by mouth daily Current Visit: Yes Status: Acute Code(s): J18.9 - PNEUMONIA, UNSPECIFIED ORGANISM SNOMED Code(s): 342312384 (3) Human immunodeficiency virus (HIV) disease Narrative/Plan: * Appreciate ID recommendations * Patient continues on his antiretrovirals therapy Current Visit: Yes Status: Acute Code(s): B20 - HUMAN IMMUNODEFICIENCY VIRUS [HIV] DISEASE SNOMED Code(s): 41990783 Plan: Anticipated discharge today or tomorrow pending placement Social work and case management assisting
[2018-03-17] MEDS: LEVOFLOXACIN 750 MG TAB PO SCH (20:47)
[2018-03-17] MEDS: traZODone HCL 100 MG TAB PO SCH (20:47)
[2018-03-18] MEDS: SODIUM CHLORIDE 0.9% 1,000 ML IV SCH ×2 (03:15→12:33)
[2018-03-18] MEDS: KETOROLAC 30 MG/ML 1 ML VIAL IVP SCH ×2 (05:24→12:32)
[2018-03-18 07:28] LABS: Anion Gap 3 mmol/L; Blood Urea Nitrogen 11 mg/dL (9-20); Calcium 8.8 mg/dL (8.4-10.2); Carbon Dioxide 27 mmol/L (22-30); Chloride 112 mmol/L (98-107); Glucose 98 mg/dL (74-99); Sodium 142 mmol/L (137-145)
[2018-03-18 07:39] LABS: Potassium 4.7 mmol/L (3.5-5.1)
[2018-03-18] MEDS: HEPARIN SODIUM,PORCINE 5,000 UNIT/ML 1 ML VIAL SQ SCH (09:43)
[2018-03-18] MEDS: OSELTAMIVIR 75 MG CAP PO SCH (09:44)
[2018-03-18] MEDS: SERTRALINE 50 MG TAB PO SCH (09:44)
[2018-03-18] MEDS: busPIRone HCl 10 MG TAB PO SCH (09:44)
[2018-03-18] MEDS: STRATTERA 40 MG PO SCH (09:45)
[2018-03-18] MEDS: [UNRECOGNIZED DRUG - OTHER] PO SCH (09:45)
[2018-03-18] MEDS: NICOTINE 21MG/24HR PATCH TRANSDERM SCH (09:46)
[2018-03-18 09:55] VITALS: BP 112/67; TEMP 97.3
[2018-03-18] MEDS: IPRATROPIUM-ALBUTEROL 3 ML NEB INHALATION PRN (11:39)
[2018-03-18 11:41] VITALS: RESP 10
[2018-03-18 11:51] VITALS: PULSE 80
--- NOTE | 2018-03-18 12:04 | P.DS ---
Providers Date of admission: 03/15/18 20:18 Expected date of discharge: 03/18/18 Attending physician: Roberto Gibbs MD Consults: 03/15/18 20:18 Consult Physician Routine Consulting Provider: Jack Medina Consult Reason/Comments: HIV, lower lobe pneumonia Do you want consulting provider notified?: Yes, Notify in am Primary care physician: Physician Nonstaff - Discharge Diagnosis(es) (1) Influenza A Current Visit: Yes Status: Acute (2) Pneumonia Current Visit: Yes Status: Acute (3) Human immunodeficiency virus (HIV) disease Current Visit: Yes Status: Acute Hospital Course: the patient is a 42-year-old male with a long-standing history of HIV currently on Biktarvy, polysubstance abuse Most recently due to met that was staying at [facility] that was admitted here with the flu after presenting with a fever reportedly of 102 along with cough and body aches. The patient was positive for influenza A and chest x-ray confirmed a left lower lobe pneumonia. The patient was started on antiviral therapy with Tamiflu and antibiotics with Levaquin. The patient remained afebrile here with only a mild leukocytosis noted 12.8 on presentation. Patient was started on supportive therapy with bronchodilator breathing treatments And Mucinex and Robitussin for his cough. Infectious diseases Dr. Medina was consulted to see the patient and recommended continuing the patient on Biktarvy and patient CD4 counts were drawn and subsequently reviewed by ID. Case management and social work was able to find a place of [facility] to transition to as he is currently homeless. We were able to have the patient's insurance fill his prescriptions and deliver them to [facility] for 03/19/18. The patient was subsequently discharged there in stable condition told to follow-up with his primary care/ID provider Dr. Kc . This discharge process took approximately 35 minutes Focused exam * Unable to be completed secondary to patient refusal (displeased about being discharged today) Patient Condition at Discharge: Stable Plan - Discharge Summary Discharge Rx Participant: Yes New Discharge Prescriptions: New Bictegrav/Emtricit/Tenofov Ala [Biktarvy 50-200-25 mg Tablet] 1 each PO DAILY #30 tablet Levofloxacin [Levaquin] 750 mg PO Q24H #5 tab Oseltamivir [Tamiflu] 75 mg PO Q12HR #7 cap Continue traZODone HCL 600 mg PO HS Sertraline [Zoloft] 50 mg PO DAILY Nicotine 21Mg/24Hr Patch [Habitrol] 21 mg TRANSDERM DAILY Bictegrav/Emtricit/Tenofov Ala [Biktarvy 50-200-25 mg Tablet] 1 tab PO DAILY Atomoxetine HCl [Strattera] 40 mg PO BID Chlorpheniramine Maleate [Chlor-Trimeton] 4 mg PO Q4H Ibuprofen [Motrin] 600 mg PO Q6HR PRN PRN Reason: Pain Acetaminophen [Tylenol Arthritis] 650 mg PO Q4H busPIRone HCl [Buspar] 10 mg PO TID Geritussin 10 ml PO Q4H PRN PRN Reason: Cough Discharge Medication List Acetaminophen [Tylenol Arthritis] 650 mg PO Q4H 03/15/18 [History] Atomoxetine HCl [Strattera] 40 mg PO BID 03/15/18 [History] Bictegrav/Emtricit/Tenofov Ala [Biktarvy 50-200-25 mg Tablet] 1 tab PO DAILY 04/28 [History] Chlorpheniramine Maleate [Chlor-Trimeton] 4 mg PO Q4H 03/15/18 [History] Geritussin 10 ml PO Q4H PRN 03/15/18 [History] Ibuprofen [Motrin] 600 mg PO Q6HR PRN 03/15/18 [History] Nicotine 21Mg/24Hr Patch [Habitrol] 21 mg TRANSDERM DAILY 03/15/18 [History] Sertraline [Zoloft] 50 mg PO DAILY 03/15/18 [History] busPIRone HCl [Buspar] 10 mg PO TID 03/15/18 [History] traZODone HCL 600 mg PO HS 03/15/18 [History] Bictegrav/Emtricit/Tenofov Ala [Biktarvy 50-200-25 mg Tablet] 1 each PO DAILY # 30 tablet 03/17/18 [Rx] Levofloxacin [Levaquin] 750 mg PO Q24H #5 tab 03/17/18 [Rx] Oseltamivir [Tamiflu] 75 mg PO Q12HR #7 cap 03/17/18 [Rx] Follow up Appointment(s)/Referral(s): Nonstaff,Physician [Primary Care Provider] - 1-2 days Patient Instructions/Handouts: Levofloxacin (By mouth), Oseltamivir (By mouth) , Bictegravir/Emtricitabine/Tenofovir Alafenamide (By mouth), Influenza (DC), Pneumonia (DC) Activity/Diet/Wound Care/Special Instructions: HOME MEDICATIONS IN OMNICELL AND PHARMACY; GIVE TO PATIENT UPON DISCHARGE Discharge Disposition: HOME SELF-CARE
--- NOTE | 2018-03-19 12:02 | CDI ---
Documentation Clarification Form Date: 03/19/2018 11:53:07 AM From: Genesis Bertrand Tiara Hood, Lead Portfolio Manager Hours-8:30 am & 5 pm M-Mahendra Admit Date: 03/15/2018 8:18:00 PM Patient Name: Neville Watkins Visit Number: [id number] Discharge Date: 03/18/2018 3:34:00 PM ATTENTION: The Clinical Documentation Specialists (CDI) and [facility] Coding Staff appreciate your assistance in clarifying documentation. Please respond to the clarification below the line at the bottom and electronically sign. The CDI & [facility] Coding staff will review the response and follow-up if needed. Please note: Queries are made part of the Legal Health Record. If you have any questions, please contact the author of this message via ITS. Dr. Roberto Gibbs HIV was documented in the H&P, PNs, Consult History of HIV related illness: Thrush, bowel infection Treatment: Biktarvy Patient is admitted for treatment of Influenza with PNA. In your professional opinion, can you please clarify if the Influenza and PNA are due to the HIV infection? HIV, asymptomatic without a related condition AIDS, with related infection, please specify infection Unable to determine Other, please specify unable to determine on admission MTDD
== END 2018-03-18 15:34 | disposition home or self-care (01) | DRG 975 ==
LOC: EC 17:54 → 4SSUR 20:18
PROVIDERS: ADMIT Internal Medicine; ATTEND Internal Medicine
DX: J18.1 Lobar pneumonia, unspecified organism (principal); B20 Human immunodeficiency virus [HIV] disease; J44.0 Chronic obstructive pulmonary disease with (acute) lower respiratory infection; J10.08 Influenza due to other identified influenza virus with other specified pneumonia; G62.9 Polyneuropathy, unspecified; F32.9 Major depressive disorder, single episode, unspecified; F17.200 Nicotine dependence, unspecified, uncomplicated; F15.10 Other stimulant abuse, uncomplicated; B37.9 Candidiasis, unspecified; F12.90 Cannabis use, unspecified, uncomplicated; R63.0 Anorexia; R63.4 Abnormal weight loss; Z68.21 Body mass index [BMI] 21.0-21.9, adult; Z59.0 Homelessness; Z71.6 Tobacco abuse counseling; Z79.899 Other long term (current) drug therapy; Z79.1 Long term (current) use of non-steroidal anti-inflammatories (NSAID); Z88.0 Allergy status to penicillin; Z82.49 Family history of ischemic heart disease and other diseases of the circulatory system
CPT/HCPCS: 36415; 71046; 80048; 80053; 83605; 85025; 86360; 87040; 87502; 94640; 96361; 96365; 99285